=== PATIENT | male | born 1980 | race Caucasian/White ===

== ENCOUNTER 2018-04-24 04:09 | Emergency (ER) | payer BC, OTHER ==
[~2018-04-24] VITALS: Ht 170.2 cm; Wt 99.0 kg
[~2018-04-24 04:09] MED LIST: FAMO-128 PO
[2018-04-24 04:13] VITALS: BP 137/93
[2018-04-24] MEDS ORDERED: ACYC-202 PO (06:14)
== END 2018-04-24 06:45 | disposition home or self-care (01) ==
LOC: ER 04:09
DX: B02.9 Zoster without complications (principal); G89.29 Other chronic pain; Z88.0 Allergy status to penicillin; Z79.899 Other long term (current) drug therapy
CPT/HCPCS: 93005; 99283

== ENCOUNTER 2019-06-12 19:45 | Emergency (ER) | payer BC ==
[~2019-06-12] VITALS: Ht 167.6 cm; Wt 104.5 kg
[2019-06-12] MEDS ORDERED: NO HOME MEDS (20:31)
--- NOTE | 2019-06-12 20:32 | NUR ---
PT REPORTS NUMBNESS AND TINGLING ON DASIA LOWER AND UPPER EXTREMITIES. IT STARTED LAST NIGHT. HE FEEL'S COLD ON DASIA HANDS AND FEET. DENIES HEADACHE OR DIZZINESS AT THIS TIME. PT TAKES NO MEDS. STATES HE HAS A HISTORY OF POLLEN ALLERGIES. HE USE TO TAKE ZYRTEC AND CLARITON WHEN HE GETS BAD ALLERGIES. HE TOOK CLARITON LAST SATURDAY.
[2019-06-12 20:56] VITALS: BP 151/95
== END 2019-06-12 20:57 | disposition home or self-care (01) ==
LOC: ER 19:46
DX: R20.2 Paresthesia of skin (principal); R06.02 Shortness of breath; R20.0 Anesthesia of skin; G89.29 Other chronic pain; Z88.0 Allergy status to penicillin; Z79.899 Other long term (current) drug therapy
CPT/HCPCS: 93005; 99283

== ENCOUNTER 2023-10-26 13:41 | Emergency (ER) | payer BC ==
[~2023-10-26] VITALS: Ht 170.2 cm; Wt 115.4 kg
[~2023-10-26 13:41] MED LIST changes: +NO HOME MEDS
[2023-10-26 13:47] VITALS: BP 160/95; PULSE 73; TEMP 98; O2SAT 99
[2023-10-26 14:01] LABS: BILIRUBIN,URINE NEGATIVE (Neg); CLARITY,URINE CLEAR (Clear); COLOR,URINE YELLOW (Yellow); GLUCOSE, URINE NEGATIVE (Neg); KETONES,URINE NEGATIVE (Neg); LEUKOCYTE ESTERASE ,URINE NEGATIVE (Neg); NITRITES, URINE NEGATIVE (Neg); OCCULT BLOOD,URINE NEGATIVE (Neg); PROTEIN,URINE NEGATIVE (Neg); UROBILINOGEN,URINE 0.2 E.U/dL (0.2-1.0)
[2023-10-26 14:17] LABS: UA COLLECTION TYPE CLN CATCH MIDSTREAM
[2023-10-26 15:47] LABS: BASOPHILS # (AUTO) 0.1 X10'3 (0-0.2); BASOPHILS % (AUTO) 0.8 % (0-1); EOSINOPHILS # (AUTO) 0.2 X10'3 (0-0.9); EOSINOPHILS % (AUTO) 3.1 % (0-6); HEMATOCRIT 45.6 % (42.0-52.0); HEMOGLOBIN 15.8 g/dl (14.0-17.9); LYMPHOCYTES # (AUTO) 3.1 X10'3 (1.1-4.8); LYMPHOCYTES % (AUTO) 40.6 % (21-51); MEAN CORPUSCULAR HEMOGLOBIN 32.5 PG (27.0-31.0); MEAN CORPUSCULAR HGB CONC 34.7 g/dL (33.0-36.5); MEAN CORPUSCULAR VOLUME 93.9 FL (78-98); MEAN PLATELET VOLUME 8.4 FL (7.4-10.4); MONOCYTES # (AUTO) 0.4 X10'3 (0-0.9); MONOCYTES % (AUTO) 5.8 % (2-12); NEUTROPHILS # (AUTO) 3.8 X10'3 (1.8-7.7); NEUTROPHILS % (AUTO) 49.7 % (42-75); PLATELET COUNT 254 X10'3 (140-440); RED BLOOD COUNT 4.86 X10'6 (4.70-6.10); RED CELL DISTRIBUTION WIDTH 12.8 % (11.5-14.5); WHITE BLOOD COUNT 7.7 X10'3 (4.5-11.0)
[2023-10-26 16:01] LABS: ALANINE AMINOTRANSFERASE 73 U/L (12-78); ALBUMIN/GLOBULIN RATIO 1.1 (1.1-1.5); ALKALINE PHOSPHATASE 83 IU/L (46-116); ANION GAP 7 (8-16); ASPARTATE AMINO TRANSFERASE 26 U/L (10-37); BILIRUBIN,TOTAL 0.5 MG/DL (0.1-1.0); BLOOD UREA NITROGEN 14 MG/DL (7-18); BUN/CREATININE RATIO 14.1 (10.0-20.0); CALCIUM 9.2 MG/DL (8.5-10.1); CHLORIDE 104 MMOL/L (99-107); CREATININE 0.99 MG/DL (0.60-1.10); GLUCOSE 96 MG/DL (70-104); LIPASE 37 U/L (16-77); SODIUM 137 MMOL/L (135-145); TOTAL CARBON DIOXIDE 26.5 MMOL/L (24-32); TOTAL PROTEIN 7.6 G/DL (6.4-8.2); eCRCL 91 ML/MIN; eGFR 83 ML/MIN
[2023-10-26 16:29] LABS: APTT 26 SECONDS (22-32); PROTHROMBIN TIME 10.8 SECONDS (9.0-12.0)
[2023-10-26] MEDS ORDERED: ketorolac trometh. 30mg/ml inj. IM ONE (16:40)
[2023-10-26] MEDS ORDERED: LIDO700A32 TOP (16:46)
[2023-10-26] MEDS ORDERED: CYCL-1 PO (16:46)
[2023-10-26 17:10] VITALS: RESP 16
[2023-10-26] MEDS: ketorolac tromethamine 15mg/ml inj. IM ONE (17:10)
[2023-10-26] MEDS: dexamethasone sod phosphate 10mg/ml inj IM STA (17:10)
[2023-10-26] MEDS: cyclobenzaprine 10mg tablet PO ONE (17:10)
[2023-10-26] MEDS: LIDOcaine 5% patch TP SCH (17:23)
[2023-10-27] MEDS ORDERED: LIDOcaine 5% patch TP SCH (08:00)
== END 2023-10-26 17:27 | disposition home or self-care (01) ==
LOC: ER 13:42
DX: M54.50 Low back pain, unspecified (principal); G89.29 Other chronic pain; Z88.0 Allergy status to penicillin; Z79.899 Other long term (current) drug therapy
CPT/HCPCS: 36415; 72100; 74176; 80053; 81003; 83690; 85025; 85610; 85730; 96372; 99285; J1100; J1885

== ENCOUNTER 2024-11-21 15:09 | Emergency (ER) | payer BC, MEDICAID ==
[~2024-11-21] VITALS: Ht 170.2 cm; Wt 117.5 kg
[~2024-11-21 15:09] MED LIST changes: +CYCL-1 PO; +LIDO-52 TOP
[2024-11-21 15:23] VITALS: BP 149/98; PULSE 94; O2SAT 98
--- NOTE | 2024-11-21 18:34 | Physician Documentation ---
History of Present Illness ~ Chief Complaint: Back Pain Stated Complaint: BACK PAIN Time Seen by MD: 18:07 Primary Medical Doctor: None HPI This is a 44-year-old male presents to the ED after injuring himself while hiking. He states that he likes to hike allowed in recently he went hiking and went faster with a normal up pill in down him. He says he did not have any problems initially but then woke up the next day with severe neck pain. He went to the chiropractor afterwards. Says that helped somewhat but still has persistent neck pain. Said that he also had some numbness in his left fingers after his injury Medication Reconciliation Allergies: Coded Allergies: Penicillins (Verified Allergy, Severe, 06/12/19) Scheduled Cyclobenzaprine* (Cyclobenzaprine*), 1 TAB PO HS Famotidine (Pepcid), 1 TABLET PO BID Lidocaine (Lidoderm), 1 PATCH TOP DAILY Miscellaneous Medications Home Med List (No Home Medications), (Reported) Past Medical History Past Medical History: Chronic Pain, Herpes Zoster Past Surgical History: noncontributory Alcohol Use: None Drug Use: none Lives with: S/O Lives In: Home Review of Systems All Other Systems at this time: Reviewed and Negative ROS As stated above in the HPI, otherwise all systems are reviewed and negative. Physical Exam Physical Exam Vital Signs: Temperature: 98.9, Source: Temporal, Heart Rate: 94, Respiratory Rate: 16, BP: 149/98, Pulse Oximetry: 98, Weight: 117.550 Oxygen Flow Rate: 0 Physical Exam General: Alert, no apparent distress. Respiratory: Lungs clear, no respiratory distress. Cardiovascular: Regular rate and rhythm, no murmurs. Back: Tender to palpation in the lumbar region cervical: Tender to palpation difficulty you up performing [id number] with lateral movement Neurologic: Oriented x4. Psychiatric: Normal mood and affect. Skin: Normal color, warm and dry. No edema, no ecchymosis. Progress Results/Orders Results/Orders Completed Orders - DARYN TRACY NP Ketorolac Trometh 30mg/Ml Vial (Toradol (11/21/24 18:25) Morphine 4mg/Ml Inj. (Morphine Inj.) (11/21/24 18:25) Diazepam Tablet (Valium Tablet) (11/21/24 18:25) Vital Signs 11/21/24 15:23 Temp 98.9 Pulse 94 Resp 16 B/P (MAP) 149/98 Pulse Ox 98 O2 Flow Rate 0 Medical Decision Making Findings After of discussing with the patient his history of present illness. As I suspect that when he hiked downhill at a high rate of speed while hiking he may have caused a disc herniation in the cervical region of his spine. He will need to obtain an MRI in the outpatient setting as he does not present with any of red flag symptoms at this time. I treated him for pain advised him to follow up with his primary care Differential Dx:Considerations: Include: AAA, Aortic dissection, Appendicitis, Bowel obstruction, Cholelithiasis, Cholangitis, DJD, Fracture, Hepatitis, HNP, Musculoskeletal pain, Pancreatitis, Pyelonephritis, Renal infarction, Strain, Urinary obstruction, Urolithiasis, Urinary tract infection, Other Departure Disposition: HOME / SELF CARE / HOMELESS Impression: Primary Impression: Lumbosacral strain Additional Impression: Cervical pain (neck) Condition: Stable Discharge Instructions: Acute Back Pain, Adult Referrals: NO PRIMARY CARE PROVIDER (PCP) Prescriptions Cyclobenzaprine HCl (Cyclobenzaprine HCl) 10 Mg Tablet 1 TAB PO Q8H for muscle spasms for 10 Days, #30 TAB Prov: DARYN TRACY NP 11/21/24 Naproxen (Naproxen) 500 Mg Tablet 1 TAB PO Q12H, #20 TAB Prov: DARYN TRACY [employer] 11/21/24 Education Educated: Patient Educated regarding: diagnosis Signature Scribe Signature: r Attestation: Scribed for Daryn Tracy Bakery Technician by Daryn Don NP . 11/21/24 18:42 DARYN TRACY NP Nov 21, 2024 18:34
[2024-11-21] MEDS ORDERED: NAPR-56 PO (18:41)
[2024-11-21] MEDS ORDERED: CYCL-394 PO (18:41)
[2024-11-21] MEDS: morphine 4 MG/ML inj SYRINge IM ONE (18:52)
[2024-11-21 18:53] VITALS: RESP 18
[2024-11-21] MEDS: ketorolac trometh 30MG/ML vial 30 MG/ML VIAL IM ONE (18:53)
[2024-11-21 19:18] VITALS: TEMP 98.9
== END 2024-11-21 19:23 | disposition home or self-care (01) ==
LOC: ER 15:09
DX: S39.012A Strain of muscle, fascia and tendon of lower back, initial encounter (principal); Z88.0 Allergy status to penicillin; R20.0 Anesthesia of skin; X58.XXXA Exposure to other specified factors, initial encounter; Y93.01 Activity, walking, marching and hiking; Y92.89 Other specified places as the place of occurrence of the external cause; Y99.8 Other external cause status
CPT/HCPCS: 96372; 99284; J1885; J2270